=== PATIENT | female | born 1930 | race Caucasian/White ===

== ENCOUNTER 2016-10-05 14:34 | Inpatient (IN) ==
[2016-10-05] MEDS ORDERED: LASIX IVP STA ×2 (14:45→18:59)
[2016-10-05 14:49] LABS: ABG PCO2 27.6 mmHg (35-45); ABG PH 7.465 (7.35-7.45)
[2016-10-05 14:50] LABS: ABG BASE EXCESS -4 (-2.0-2.0); ABG HCO3 19.9 (22.0-26.0); ABG TCO2 21 (22.0-28.0)
[2016-10-05 15:18] LABS: BASOPHILS % (AUTO) 0.1 % (0.0-3.0); EOSINOPHILS # (AUTO) 0.1 K/ul (0.0-0.7); EOSINOPHILS % (AUTO) 0.4 % (0.0-7.0); HEMATOCRIT 31.2 % (37.0-47.0); HEMOGLOBIN 10.3 g/dl (12.0-16.0); IMMATURE GRANULOCYTE % (AUTO) 0.5 % (0.0-5.0); LYMPHOCYTES # (AUTO) 0.9 K/uL (0.60-3.4); LYMPHOCYTES % (AUTO) 6.4 (10.0-50.0); MEAN CORPUSCULAR HEMOGLOBIN 30.6 pg (27.0-31.0); MEAN CORPUSCULAR VOLUME 92.6 fl (81.0-99.0); MONOCYTES # (AUTO) 0.7 K/uL (0.4-2.0); MONOCYTES % (AUTO) 5.5 (0-10); NEUTROPHILS # (AUTO) 11.6 K/ul (2.0-6.9); NEUTROPHILS % (AUTO) 87.1; PLATELET COUNT 255 10^3/uL (140-440); RED BLOOD COUNT 3.37 10^6/ul (4.20-5.40); WHITE BLOOD COUNT 13.34 K/ul (4.6-10.2)
--- NOTE | 2016-10-05 15:21 | CT ---
EXAM: Noncontrast CT of the chest HISTORY: Dyspnea COMPARISON: 11/26/2015 chest x-ray TECHNIQUE: Noncontrast CT of the chest FINDINGS: There is a [id number] right and small left pleural effusion. Interlobular septal thickening i s seen with asymmetric prominence in the right lung. There are right greater than left ground-glass opacities. There is right upper lobe linear atelectasis. Inferior right middle lobe and medial rig ht lower lobe atelectasis is also seen. A 9 mm right upper lobe subpleural focal density is seen on axial image 19. There is mild lingular and left lower lobe atelectasis. The heart is enlarged. There are operative changes of CABG. Atherosclerotic calcifications are pre sent including the coronary arteries. A 1.3 cm subcarinal lymph node is seen. A 1.1 cm pretracheal lymph node is identified. Other smaller mediastinal lymph nodes are present. A 2.1 cm left renal probable cyst is seen. IMPRESSION: Szlksclx-hr-[id number] right and small left pleural effusions. Right greater than left ground-glass opacities which could represent asymmetric pulmonary edema or a n infectious etiology. Asymmetric right greater than left interlobular septal thickening. This is a nonspecific finding of ten seen with interstitial edema. Follow-up to resolution is recommended to exclude a neoplastic et iology. Scattered areas of right lung atelectasis. Right upper lobe nodule versus focus of atelectasis/scarring with the measuring 9 mm. 3-month follo w up recommended. Nonspecific mildly enlarged mediastinal lymph nodes.
[2016-10-05 15:38] LABS: ALBUMIN 3.8 g/dL (3.4-5.0); ALBUMIN/GLOBULIN RATIO 1.03; ANION GAP 14.4; BILIRUBIN,TOTAL 0.78 mg/dL (0.00-1.20); BUN/CREATININE RATIO 14.17; CALCIUM 9.5 mg/dL (8.2-10.2); CREATININE 1.27 mg/dL (0.60-1.30); POTASSIUM 4.4 mmol/L (3.5-5.10); TOTAL PROTEIN 7.5 g/dL (5.8-8.1); TROPONIN I 0.051 ng/ml (0.0000-0.4000)
--- NOTE | 2016-10-05 15:46 | ED.PDOC ---
General ED Provider: Dr. MARICARMEN BYRD-ER Chief Complaint: Shortness of Air Stated Complaint: im sob--my legs are swollen --i quit taking my lasix 4 days ago cause i pee all the time Time Seen by Physician: 14:40 Mode of Arrival: Wheelchair Information Source: Patient Exam Limitations: No limitations Primary Care Provider: CORWIN CRABTREE Nursing and Triage Documentation Reviewed and Agree: Yes Respiratory Complaint Exam - Shortness of Air Complaint/Exam Onset/Duration: 2 days ago Symptoms Are: Still present Timing: Intermittent Initial Severity: Mild Current Severity: Moderate Character: Reports: Dyspnea at rest, Dyspnea on exertion, Orthopnea Aggravating: Reports: None Alleviating: Reports: Oxygen Associated Signs and Symptoms: Reports: Edema, Labored breathing. Denies: Cough , Wheezing, Chest pain with cough, Chest pain, Fever, Chills, Diaphoresis, Nasal congestion, Dizziness, Calf pain, Calf swelling, Rapid breathing, Decreased intake Related History: Reports: Similar episode Cardiac Risk Factors: Reports: CAD, Diabetes, Hypertension Tuberculosis Risk Factors: Reports: Chronic Resp. Faliure Home Oxygen Use: No Recent Stress Test: No Recent Echo/LV Function: No Respiratory Distress: None Stridor Present: No Tracheal Deviation: No Subcutaneous Emphysema: No Accessory Muscle Use: No Retractions: Not Present Diminished Breath Sounds: No Prolonged Expiratory Phase: No Unable to Speak Full Sentences: No Fatigue: Yes Leg Swelling: Yes Neela's Sign Present: No Grunting Respirations: No Kussmaul Respirations: No Differential Diagnoses: CHF, Pulmonary Edema, Pneumonia Quality Indicator For Non-Traumatic Chest Pain/Syncope: EKG Performed Review of Systems - Review Of Systems Constitutional: Reports: No symptoms Eyes: Reports: No symptoms Ears, Nose, Mouth, Throat: Reports: No symptoms Respiratory: Reports: Cough, Short of air Cardiac: Reports: Edema GI: Reports: No symptoms : Reports: No symptoms Musculoskeletal: Reports: No symptoms Skin: Reports: No symptoms Neurological: Reports: No symptoms Endocrine: Reports: No symptoms Hematologic/Lymphatic: Reports: No symptoms All Other Systems: Reviewed and Negative Past Medical History - Past Medical History Endocrine: Reports: DM 2 Cardiovascular: Reports: CAD, Hypertension, CHF Respiratory: Reports: Unknown Hematological: Reports: Unknown Gastrointestinal: Reports: Unknown Genitourinary: Reports: Unknown Neuro/Psych: Reports: Unknown Musculoskeletal: Reports: Unknown Cancer: Reports: Unknown Last Menstrual Period: none - Surgical History General Surgical History: Reports: Unknown - Family History Family History: Reports: Unknown - Social History Smoking Status: Never smoker Hx Substance Use: No Alcohol Screening: None Lives: With family Physical Exam - Physical Exam Appearance: Well-appearing Eyes: NIKO ENT: Ears normal, Nose normal, Oropharynx normal Neck: Supple Respiratory: Crackles, Rhonchi Cardiovascular: RRR, Pulses normal, No rub, No murmur GI/: Soft, Nontender, No masses, Bowel sounds normal, No Organomegaly Musculoskeletal: Normal strength, ROM intact, No edema, No calf tenderness Skin: Warm, Dry, Normal color Neurological: Sensation intact Psychiatric: Affect appropriate, Mood appropriate Interpretation - Radiology Interpretation Radiology Interpretation By: Radiologist Radiology Results: Positive Exam Interpreted: CT Scan - EKG Interpretation Time of EKG #1: 15:48 Rate: Normal Rhythm: Sinus Ectopy: None Mckenney: NL ST Segment: Normal Interpretation: nsr Re-Evaluation - Re-Evaluation Time of Re-Evaluation: 15:49 Status: Improved (voided 300cc ) Vital Signs Stable: Yes Pain Level: 0 Appearance: NAD Lungs: Clear Skin: Warm and Dry Neuro: Alert and Oriented X3 CV: RRR Physician Notification - Case Discussed Physician Notified: dr crabtree Time of Notification: 15:57 Critical Care Note - Critical Care Note Total Time (mins): 0 Course - Course Hematology/Chemistry: 10/05/16 15:05 10/05/16 15:05 Orders, Labs, Meds: Lab Review 10/05/16 10/05/16 14:40 15:05 WBC 13.34 H RBC 3.37 L Hgb 10.3 L Hct 31.2 L MCV 92.6 MCH 30.6 MCHC 33.0 RDW Coeff of Nik 16.7 H Plt Count 255 Immature Gran % (Auto) 0.5 Neut % (Auto) 87.1 Lymph % (Auto) 6.4 L Hardee % (Auto) 5.5 Eos % (Auto) 0.4 Baso % (Auto) 0.1 Immature Gran # (Auto) 0.1 Neut # 11.6 H Lymph # 0.9 Hardee # 0.7 Eos # 0.1 Baso # 0.0 D-Dimer (Manual) 2823.49 Puncture Site Rb O2 Saturation 87.0 L ABG pH 7.465 H ABG pCO2 27.6 L ABG pO2 49.0 L* ABG HCO3 19.9 L ABG Total CO2 21 L ABG Base Excess -4 L Harley Test + FiO2 % 21.0 Sodium 139 Potassium 4.4 Chloride 107 Carbon Dioxide 22 L Anion Gap 14.4 BUN 18 Creatinine 1.27 Estimated GFR (MDRD) 40.00 BUN/Creatinine Ratio 14.17 Glucose 110 Calcium 9.5 Total Bilirubin 0.78 AST 34 ALT 67 Alkaline Phosphatase 57 Total Creatine Kinase 53 Troponin I 0.0510 B-Natriuretic Peptide 2315 H Total Protein 7.5 Albumin 3.8 Globulin 3.7 Albumin/Globulin Ratio 1.03 Orders Category Date Time Status ABG DRAW REQUEST Stat CARDIO 10/05/16 14:40 Completed EKG-(ED ONLY) Stat CARDIO 10/05/16 14:40 Completed Hospital Orderly [ED ROOF TRUSS DETAILER APPLIED] .ONCE EMERGENCY 10/05/16 14:40 Active IV [ED IV/MEDIPORT/POWERPORT] .ONCE EMERGENCY 10/05/16 14:41 Active ABG Stat LAB 10/05/16 14:40 Completed B-TYPE NATRIURETIC PEPTIDE Stat LAB 10/05/16 15:05 Completed CBC W/ AUTO DIFF Stat LAB 10/05/16 15:05 Completed COMPREHENSIVE METABOLIC PANEL Stat LAB 10/05/16 15:05 Completed CREATINE KINASE Stat LAB 10/05/16 15:05 Completed D-DIMER Stat LAB 10/05/16 15:05 Completed TROPONIN I Stat LAB 10/05/16 15:05 Completed 0.9 % Sodium Chloride [Saline Flush] MEDS 10/05/16 14:41 Active 1 syr IVF PRN PRN Furosemide [Lasix] MEDS 10/05/16 14:45 Discontinued 40 mg IVP ONCE STA CT CHEST W/O CONTRAST Stat RADS 10/05/16 14:41 Completed Medications Generic Name Dose Route Start Last Admin Trade Name Freq PRN Reason Stop Dose Admin Sodium Chloride 1 syr 10/05/16 14:41 10/05/16 15:12 Saline Flush IVF 1 syr PRN PRN Administration To flush IV Discontinued Medications Generic Name Dose Route Start Last Admin Trade Name Freq PRN Reason Stop Dose Admin Furosemide 40 mg 10/05/16 14:45 10/05/16 15:11 Lasix IVP 10/05/16 14:46 40 mg ONCE STA Administration Vital Signs: Temp Pulse Resp BP Pulse Ox 10/05/16 14:35 97.4 F L 106 H 28 H 166/83 H 86 L Departure - Departure Time of Disposition: 15:57 Disposition: ADMITTED INPATIENT Discharge Problem: Acute respiratory failure Qualifiers: Respiratory failure complication: hypoxia Qualifier Code: (J96.01) Acute respiratory failure with hypoxia Congestive heart failure Qualifiers: Congestive heart failure type: unspecified congestive heart failure type Congestive heart failure chronicity: acute Qualifier Code: (I50.9) Heart failure , unspecified Instructions: Pulmonary Edema (ED), Heart Failure (ED) Condition: Stable Pt referred to PMD for follow-up: Yes Allergies/Adverse Reactions: Allergies ezetimibe [From Zetia] Adverse Reaction (Verified 10/05/16 14:41) guaifenesin [From Mucinex] Adverse Reaction (Verified 10/05/16 14:41) niacin [From Niaspan Extended-Release] Adverse Reaction (Verified 10/05/16 14:41 ) Home Medications: Ambulatory Orders Clopidogrel Bisulfate [Plavix] 75 mg PO DAILY 11/26/15 Furosemide [Lasix] 40 mg PO PRN PRN 11/26/15 Rosuvastatin Calcium [Crestor] 20 mg PO BEDTIME 11/26/15 Acetaminophen [Tylenol Extra Strength] 500 mg PO Q4-6H PRN 10/05/16 Aspirin [Aspirin EC] 81 mg PO DAILYWM 10/05/16 Lisinopril 10 mg PO DAILY 10/05/16 Metoprolol Succinate 100 mg PO DAILY 10/05/16 Disposition Discussed With: Patient, Family
--- NOTE | 2016-10-05 16:54 | US ---
EXAM: Bilateral lower extremity venous Doppler HISTORY: Concern for DVT with difficulty breathing and lower extremity tenderness and swelling. COMPARISON: None TECHNIQUE: Sonographic and Doppler evaluation of the bilateral lower extremity vessels from the com mon femoral through the anterior tibial veins were obtained. Augmentation and compression technique s were also performed. FINDINGS: There is spontaneous Doppler flow seen in the bilateral lower extremity veins from the co mmon femoral through the anterior tibial veins. There is normal compression and augmentation throug hout the lower extremity veins. There is no visualized reflux. Sonographic appearance of the soft tissues are unremarkable. IMPRESSION: No lower extremity DVT.
[2016-10-05 17:35] VITALS: BMI 28.3
[2016-10-05] MEDS ORDERED: TORADOL IVP STA (18:57)
[2016-10-05] MEDS ORDERED: DECADRON 4 MG/ML SDV IM STA (18:57)
[2016-10-05] MEDS ORDERED: NON-FORMULARY MEDICATION (Rosuvastatin Calcium [Crestor] 20 MG) PO SCH ×22 (21:00)
[2016-10-05] MEDS: LOVENOX SUBCUT SCH (21:28)
[2016-10-05] MEDS: CRESTOR PO SCH (21:28)
[2016-10-05] MEDS: XOPENEX 1.25 MG NEB SCH (22:55)
[2016-10-05] MEDS ORDERED: XOPENEX 1.25 MG NEB ONE (22:55)
[2016-10-06] MEDS: XOPENEX 1.25 MG NEB SCH ×4 (05:02→23:36)
[2016-10-06] MEDS: LASIX IVP SCH (05:43)
[2016-10-06 06:08] LABS: ABG PCO2 33.3 mmHg (35-45); ABG PH 7.472 (7.35-7.45)
[2016-10-06 06:10] LABS: ABG BASE EXCESS 1 (-2.0-2.0); ABG HCO3 24.4 (22.0-26.0); ABG TCO2 25 (22.0-28.0)
[2016-10-06 06:11] LABS: BASOPHILS % (AUTO) 0.1 % (0.0-3.0); HEMATOCRIT 30.9 % (37.0-47.0); HEMOGLOBIN 10.1 g/dl (12.0-16.0); IMMATURE GRANULOCYTE % (AUTO) 0.6 % (0.0-5.0); LYMPHOCYTES # (AUTO) 0.6 K/uL (0.60-3.4); LYMPHOCYTES % (AUTO) 6.8 (10.0-50.0); MEAN CORPUSCULAR HEMOGLOBIN 30.2 pg (27.0-31.0); MEAN CORPUSCULAR HGB CONC 32.7 (31.8-35.4); MEAN CORPUSCULAR VOLUME 92.5 fl (81.0-99.0); MONOCYTES # (AUTO) 0.1 K/uL (0.4-2.0); NEUTROPHILS # (AUTO) 7.9 K/ul (2.0-6.9); NEUTROPHILS % (AUTO) 91.5; PLATELET COUNT 255 10^3/uL (140-440); RED BLOOD COUNT 3.34 10^6/ul (4.20-5.40); WHITE BLOOD COUNT 8.58 K/ul (4.6-10.2)
[2016-10-06 06:35] LABS: ALBUMIN 3.6 g/dL (3.4-5.0); ALBUMIN/GLOBULIN RATIO 1.03; ANION GAP 15.9; BILIRUBIN,TOTAL 0.76 mg/dL (0.00-1.20); BUN/CREATININE RATIO 13.01; CALCIUM 9.2 mg/dL (8.2-10.2); CREATININE 1.46 mg/dL (0.60-1.30); POTASSIUM 3.9 mmol/L (3.5-5.10); TOTAL PROTEIN 7.1 g/dL (5.8-8.1)
[2016-10-06] MEDS ORDERED: NON-FORMULARY MEDICATION (Lisinopril [Lisinopril] 10 MG) PO SCH ×22 (09:00)
[2016-10-06] MEDS ORDERED: NON-FORMULARY MEDICATION (Metoprolol Succinate [Metoprolol Succinate] 100 MG) PO SCH (09:00)
[2016-10-06] MEDS: ASPIRIN EC PO SCH (09:41)
[2016-10-06] MEDS: PLAVIX PO SCH (09:42)
[2016-10-06] MEDS: ZESTRIL PO SCH (09:42)
[2016-10-06] MEDS: TOPROL XL PO SCH (09:42)
[2016-10-06] MEDS: LOVENOX SUBCUT SCH ×2 (09:43→20:30)
--- NOTE | 2016-10-06 10:05 | PCM.PROG ---
Attending Provider: ATTENDING PROVIDER: Dr. CORWIN BESS DATE OF SERVICE: 10/06/16 SUBJECTIVE: This 86 year old WHITE/ F was hospitalized 10/05/16. The patient is hospitalized with acute respiratory failure and acute pulmonary edema. The patient's condition has improved remarkably. She is feeling much better, slept well. She had stopped taking Lasix for 3 to 4 days prior to hospitalization. She has had recent CABG, 08/08/16 at [facility]. REVIEW OF SYSTEMS: CONSTITUTIONAL: Weakness. No night sweats.. No fever or chills. HEENT: Eyes: No visual changes. No eye pain. No eye discharge. ENT: No runny nose. No epistaxis. No sinus pain. No odynophagia. No congestion. RESPIRATORY: No cough, no congestion. No hemoptysis. CARDIOVASCULAR: No angina symptoms. No CHF symptoms. No atypical chest pain for CAD. No palpitations. No shortness of breath. GASTROINTESTINAL: Appetite is not good. No abdominal pain. No nausea or vomiting. No diarrhea or constipation. No hematemesis. No hematochezia. GENITOURINARY: No urgency. No frequency. No dysuria. No hematuria. No obstructive symptoms. No discharge. No pain. No significant abnormal bleeding. MUSCULOSKELETAL: No musculoskeletal pain; no joint swelling. NEUROLOGICAL: Awake, alert, oriented to time, place and person. No headache. No neck pain. No syncope. No seizures. No dizziness. PSYCHIATRIC: Not anxious. No depression. No suicidal thoughts. No homicidal thoughts. SKIN: No rash. No lesions. No wounds. ENDOCRINE: No unexplained weight loss. No weight gain. HEMATOLOGIC/LYMPHATIC: No anemia. No purpura. No petechiae. No prolonged or excessive bleeding. No palpable lymph nodes. PHYSICAL EXAMINATION: GENERAL: The patient is awake, alert and oriented, lying/sitting in bed in no distress. VITAL SIGNS: Temperature 97.0 F, Pulse 90, Respiratory Rate 24, BP 111/67, Pulse Ox 98% HEENT: Head normocephalic, atraumatic. Eyes: Extraocular muscles are intact. Pupils are equal, round and reactive to light and accommodation. Ears: No lesions. Nose appeared normal. Throat: No exudate or erythema. NECK: Supple. No JVD, no carotid bruit. No lymphadenopathy or thyromegaly. LUNGS: Good air entry. Clear to auscultation. Percussion note normal. Chest symmetrical. HEART: S1, S2, no S3. No murmurs. No cyanosis or clubbing. No ascites. Pulses: Dorsalis pedis and posterior tibial pulses +1 to +2 both sides. ABDOMEN: Soft. Non-tender. Bowel sounds active. No CVA tenderness. No mass felt. EXTREMITIES: No edema. Full range of motion of all extremities, equal. NEUROLOGIC: No focal deficit. Cranial nerves II through XII are grossly intact. No headache, no double vision or headache. SKIN: Not dry. Intact. Turgor-normal. LYMPHATIC: No palpable lymph nodes/no lymphedema. MUSCULOSKELETAL: Normal joints with no swelling. Muscle tone is normal. LAB REVIEW: 10/06/16 05:05 10/06/16 05:05 10/06/16 06:06: Puncture Site R radial, O2 Saturation 92.0 L, ABG pH 7.472 H, ABG pCO2 33.3 L, ABG pO2 58.0 L*, ABG HCO3 24.4, ABG Total CO2 25, ABG Base Excess 1, Harley Test +, FiO2 % 21.0 10/06/16 05:05: WBC 8.58, RBC 3.34 L, Hgb 10.1 L, Hct 30.9 L, MCV 92.5, MCH 30.2 , MCHC 32.7, RDW Coeff of Nik 17.0 H, Plt Count 255, Immature Gran % (Auto) 0.6 , Neut % (Auto) 91.5, Lymph % (Auto) 6.8 L, Mccone % (Auto) 1.0, Eos % (Auto) 0.0 , Baso % (Auto) 0.1, Immature Gran # (Auto) 0.1, Neut # 7.9 H, Lymph # 0.6, Mccone # 0.1 L, Eos # 0.0, Baso # 0.0, Sodium 139, Potassium 3.9, Chloride 104, Carbon Dioxide 23, Anion Gap 15.9, BUN 19 H, Creatinine 1.46 H, Estimated GFR ( MDRD) 34.00, BUN/Creatinine Ratio 13.01, Glucose 147 H, Calcium 9.2, Total Bilirubin 0.76, AST 25, ALT 54, Alkaline Phosphatase 55, Total Protein 7.1, Albumin 3.6, Globulin 3.5, Albumin/Globulin Ratio 1.03 ASSESSMENT: 1. Acute pulmonary edema and acute respiratory failure resolved. 2. CABG 3. Chronic kidney disease 4. Anemia 5. Chronic lung disease PLAN: 1. BNP in a.m. 2. Regular diet 3. Repeat chest x-ray 4. PFT tomorrow 5. Continue Lasix 6. Continue medications 7. Echocardiogram 8. Monitor CBC and CMP 9. Will request records from [facility] for CABG Plan and coordination of the patient's care discussed in the presence of [employer] Care Manager and nurse. EDUCATION: CHF education carried out. The patient is very intelligent and wants DNR. She wants a copy of the DNR to carry with her. CONDITION: Stable SCRIBED BY: MARY RODNEY, Hospital Plan Administrator scribed while in presence of service performed by Dr. CORWIN BESS on 10/06/16 ([id number])
[2016-10-06 10:14] LABS: ABG PH 7.465 (7.35-7.45)
[2016-10-06 10:15] LABS: ABG BASE EXCESS -2 (-2.0-2.0); ABG PCO2 30.6 mmHg (35-45); ABG TCO2 23 (22.0-28.0)
--- NOTE | 2016-10-06 10:48 | HP ---
DATE OF SERVICE: 10/05/16 REASON FOR HOSPITALIZATION: Acute pulmonary edema, acute CHF HISTORY OF PRESENT ILLNESS: 84-year-old white female was brought to the emergency room because of acute shortness of breath. The patient, according to her own words, stopped taking Lasix 3 to 4 days prior to hospitalization because she had to go to the bathroom quite often. She was also being given iron infusions lately. She had to go back and forth. The patient lives by herself with the help of a friend she came to the emergency room (not the family). The patient's history is positive for orthopnea, PND, unable to sleep at night for the last couple of nights but the shortness of breath became acute this afternoon and she came to the emergency room. No chest pain. REVIEW OF SYSTEMS: CONSTITUTIONAL: Unable to sleep the past two nights. Weakness and fatigue. No night sweats. No fever or chills. HEENT: Eyes: No visual changes. No eye pain. No eye discharge. ENT: No runny nose. No epistaxis. No sinus pain. No sore throat. No odynophagia. No ear pain. No congestion. RESPIRATORY: Mild cough and congestion. No hemoptysis. CARDIOVASCULAR: No angina symptoms. No CHF symptoms. No atypical chest pain for CAD. No palpitations. Shortness of breath. PND and orthopnea. GASTROINTESTINAL: Appetite not good for the past 2 to 3 days. No abdominal pain. No nausea or vomiting. No diarrhea or constipation. No hematemesis. No hematochezia. GENITOURINARY: No urgency. No frequency. No dysuria. No hematuria. No obstructive symptoms. No discharge. No pain. No significant abnormal bleeding. MUSCULOSKELETAL: No musculoskeletal pain. No joint swelling. No arthritis. NEUROLOGICAL: No headache. No neck pain. No syncope. No seizures. No dizziness. PSYCHIATRIC: Not anxious. No depression. No suicidal thoughts. No homicidal thoughts. SKIN: No rash. No lesions. No wounds. ENDOCRINE: No unexplained weight loss. No weight gain. HEMATOLOGIC/LYMPHATIC: No anemia. No purpura. No petechiae. No prolonged or excessive bleeding. No palpable lymph nodes. PERSONAL/FAMILY/SOCIAL HISTORY: The patient is , nonsmoker. No alcohol abuse. PAST MEDICAL/SURGICAL PROBLEMS: 1. Coronary artery bypass surgery 2007 2. Right sciatica 3. Paroxysmal atrial flutter/fib 4. Hypertension 5. Dyslipidemia 6. COPD 7. Chronic kidney disease 8. Transvaginal mesh 9. Left renal complex cyst 10. Dementia 11. Insomnia 12. Hypothyroidism 13. History of ARDS 14. History of nephrolithiasis 15. Note - The patient had bypass surgery 2008 was done at [facility] 16. History of right and left cataract removal MEDICATIONS: 1. Plavix 75 mg p.o. daily 2. Metoprolol 50 mg twice a day 3. Rosuvastatin 20 mg once a day 4. Tramadol 50 mg t.i.d. p.r.n. 5. Clonazepam 0.5 once a day 6. K-Tab 10 mEq p.o. daily 7. Lasix 40 mg p.o. daily 8. Nitroglycerin p.r.n. sublingual for chest pain 9. Aspirin one tablet p.o. daily ALLERGIES: EZETIMIBE, GUAIFENESIN, NIACIN PHYSICAL EXAMINATION: GENERAL: The patient is oriented to time, place and person. The patient looks somewhat pale. The patient is not in much distress. VITAL SIGNS: Temperature 98, pulse 100/min, respiratory rate 20, BP 138/82. HEENT: Head normocephalic, atraumatic. Eyes: Extraocular muscles are intact. Pupils are equal, round and reactive to light and accommodation. Ears: No lesions. Nose appeared normal. Throat: No exudate or erythema. Sclerae nonicteric. NECK: Supple. JVP 4 cm. No carotid bruit. No lymphadenopathy or thyromegaly. LUNGS: Decreased breath sounds with mild wheeze bilaterally. Percussion note normal. Chest symmetrical. HEART: PMI not palpable on auscultation. S1, S2, no S3. No murmurs. No cyanosis or clubbing. No ascites. Pulses: Dorsalis pedis and posterior tibial pulses +1 bilaterally. ABDOMEN: Soft. Nontender. Bowel sounds active. No CVA tenderness. No mass felt. EXTREMITIES: Trace edema. Full range of motion of all extremities, equal. NEUROLOGIC: No focal deficit. Cranial nerves II through XII are grossly intact. No headache, no double vision or headache. SKIN: Not dry. Intact. Turgor - normal. LYMPHATIC: No palpable lymph nodes/no lymphedema. MUSCULOSKELETAL: Normal joints with no swelling. Muscle tone is normal. LABS/X-RAYS: CT scan of the chest with noncontrast shows pulmonary edema; moderate to large right and small left pleural effusion, right greater than left ground glass opacities could represent asymmetric pulmonary edema or infectious disease process. Scattered areas of right lung atelectasis. D. dimer elevated but the patient has renal disease and also respiratory failure. Troponin negative. Telemetry shows sinus tachycardia. ABG on admission p02 49, pc02 27, pH 7.46 with 87% saturation on room air. ASSESSMENT: 1. RESPIRATORY FAILURE WITH ACUTE PULMONARY EDEMA WITH CHF 2. CORONARY ARTERY BYPASS GRAFTING 2007 3. PAROXYSMAL ATRIAL FLUTTER/FIB 4. HYPERTENSION 5. CHRONIC LUNG DISEASE 6. CHRONIC KIDNEY DISEASE 7. DYSLIPIDEMIA 8. HYPERTENSION 9. NEPHROLITHIASIS 10. COMPLEX RENAL CYST 11. DEMENTIA 12. HYPOTHYROIDISM PLAN: 1. IV Lasix to be restarted - 40 mg was given 2. 1 cc Decadron 3. Toradol 30 mg IV now 4. Oxygen supplements 5. Monitor ABG 6. Monitor telemetry 7. EKG 8. Serial cardiac markers 9. Monitor CBC, CMP EDUCATION CARRIED OUT ABOUT: CHF CONDITION: Stable PROGNOSIS: GUARDED TIME SPENT: More than 70 minutes. ADDENDUM: The patient had recent RI in July. ST elevation RI. The patient underwent cardiac catheterization where they were able to put in one stent but unable to any other stents. During the procedure, the patient went into severe bradycardia and was resuscitated. During the stay in the hospital, the patient also developed pneumonia and was noted to have severe hypoxemia so she has been on oxygen 24 hours at home. The patient had echocardiogram done which showed hypokinetic left ventricle with ejection fraction 35 to 40%. LV size was normal. LA cavity was enlarged. MTDD
--- NOTE | 2016-10-06 11:58 | DI ---
EXAM: Two views of the chest. History: Short of breath Comparison: Chest CT 10/05/2016 Findings: Sternotomy wires. Atherosclerotic vascular calcifications. Heart is enlarged. Moderate right pleural effusion and small left pleural effusion with basilar atelectasis or pneumonia and gr eater on the right. No visible pneumothorax. No acute osseous abnormalities. Impression: Moderate right pleural effusion and small left pleural effusion with basilar atelectasi s or pneumonia. Heart is enlarged. Underlying edema is a possibility.
--- NOTE | 2016-10-06 12:22 | NM ---
EXAM: Ventilation perfusion lung scan HISTORY: Shortness of breath. Elevated D-dimer. COMPARISON: None of this type. Chest CT 10/05/2016. Chest x-ray 10/06/2016. PROCEDURE: Ventilation: The patient was allowed to inhale from a reservoir of 32.1 mCi of 99 technetium DTPA a erosol. Subsequently anterior, posterior, lateral and anterior and posterior oblique images were ob tained. Perfusion: The patient was injected with 5.4 mCi of 99 technetium MAA intravenously after which ant erior, posterior, lateral and anterior and posterior oblique images were obtained. FINDINGS: Ventilation images demonstrate a nonuniform distribution of activity in the lung mcdaniel wi th reduced activity seen in the upper lobes and regions of greater activity in the posterior lung ba ses, particularly the left. The perfusion images demonstrate a more uniform distribution of activity without evidence of specifi c segmental or subsegmental perfusion defects not matched on the ventilation portion of the examinat ion. There are small regions of reduced activity bilaterally. Some of these may be associated with the patient's scattered regions of infiltrate/edema described in the CT report which are more bisi us on the right. IMPRESSION: 1. The examination demonstrates a technically low probability of pulmonary embolus based upon the ab sence of significant mismatched perfusion defects.. 2. There is marked underlying lung disease which is particularly evident on the ventilation portion of the examination. This can affect the reliability of the in the Q scan in detecting emboli, partic ularly small or atypical emboli. 3. If there is strong clinical suspicion of a pulmonary embolus, CTA evaluation is recommended. Results faxed to the ER at 12:17 p.m.
[2016-10-06] MEDS: CRESTOR PO SCH (20:30)
[2016-10-07] MEDS: XOPENEX 1.25 MG NEB SCH ×4 (05:18→23:00)
[2016-10-07] MEDS: LASIX IVP SCH (05:42)
[2016-10-07] MEDS: TOPROL XL PO SCH (08:45)
[2016-10-07] MEDS: ASPIRIN EC PO SCH (08:45)
[2016-10-07] MEDS: PLAVIX PO SCH (08:45)
[2016-10-07] MEDS: ZESTRIL PO SCH (08:45)
[2016-10-07] MEDS: LOVENOX SUBCUT SCH ×2 (08:45→20:23)
[2016-10-07] MEDS: CRESTOR PO SCH (20:24)
[2016-10-08] MEDS: XOPENEX 1.25 MG NEB SCH ×4 (05:37→23:00)
[2016-10-08 05:43] LABS: ABG BASE EXCESS 2 (-2.0-2.0); ABG PCO2 38.2 mmHg (35-45); ABG TCO2 27 (22.0-28.0)
[2016-10-08] MEDS: LASIX IVP SCH (05:52)
[2016-10-08] MEDS: ASPIRIN EC PO SCH (08:43)
[2016-10-08] MEDS: LOVENOX SUBCUT SCH ×2 (08:43→20:48)
[2016-10-08] MEDS: ZESTRIL PO SCH (08:43)
[2016-10-08] MEDS: PLAVIX PO SCH (08:44)
[2016-10-08] MEDS: TOPROL XL PO SCH (08:44)
[2016-10-08 13:08] LABS: BASOPHILS % (AUTO) 0.2 % (0.0-3.0); EOSINOPHILS # (AUTO) 0.5 K/ul (0.0-0.7); EOSINOPHILS % (AUTO) 4.5 % (0.0-7.0); HEMATOCRIT 34.1 % (37.0-47.0); IMMATURE GRANULOCYTE % (AUTO) 0.4 % (0.0-5.0); LYMPHOCYTES # (AUTO) 1.6 K/uL (0.60-3.4); LYMPHOCYTES % (AUTO) 14.2 (10.0-50.0); MEAN CORPUSCULAR HEMOGLOBIN 30.1 pg (27.0-31.0); MEAN CORPUSCULAR HGB CONC 32.3 (31.8-35.4); MEAN CORPUSCULAR VOLUME 93.4 fl (81.0-99.0); MONOCYTES # (AUTO) 1.1 K/uL (0.4-2.0); MONOCYTES % (AUTO) 9.6 (0-10); NEUTROPHILS # (AUTO) 7.8 K/ul (2.0-6.9); NEUTROPHILS % (AUTO) 71.1; PLATELET COUNT 302 10^3/uL (140-440); RED BLOOD COUNT 3.65 10^6/ul (4.20-5.40); WHITE BLOOD COUNT 10.95 K/ul (4.6-10.2)
[2016-10-08 13:26] LABS: ALBUMIN 3.8 g/dL (3.4-5.0); ALBUMIN/GLOBULIN RATIO 0.97; ANION GAP 16.2; BILIRUBIN,TOTAL 0.51 mg/dL (0.00-1.20); BUN/CREATININE RATIO 17.46; CALCIUM 9.4 mg/dL (8.2-10.2); CREATININE 1.66 mg/dL (0.60-1.30); POTASSIUM 4.2 mmol/L (3.5-5.10); TOTAL PROTEIN 7.7 g/dL (5.8-8.1)
[2016-10-08] MEDS: CRESTOR PO SCH (20:48)
[2016-10-09 04:57] LABS: BASOPHILS % (AUTO) 0.3 % (0.0-3.0); EOSINOPHILS # (AUTO) 0.6 K/ul (0.0-0.7); EOSINOPHILS % (AUTO) 5.9 % (0.0-7.0); HEMATOCRIT 28.9 % (37.0-47.0); HEMOGLOBIN 9.5 g/dl (12.0-16.0); IMMATURE GRANULOCYTE % (AUTO) 0.6 % (0.0-5.0); LYMPHOCYTES # (AUTO) 1.8 K/uL (0.60-3.4); LYMPHOCYTES % (AUTO) 17.7 (10.0-50.0); MEAN CORPUSCULAR HEMOGLOBIN 30.8 pg (27.0-31.0); MEAN CORPUSCULAR HGB CONC 32.9 (31.8-35.4); MEAN CORPUSCULAR VOLUME 93.8 fl (81.0-99.0); MONOCYTES # (AUTO) 1.2 K/uL (0.4-2.0); MONOCYTES % (AUTO) 11.6 (0-10); NEUTROPHILS # (AUTO) 6.5 K/ul (2.0-6.9); NEUTROPHILS % (AUTO) 63.9; PLATELET COUNT 245 10^3/uL (140-440); RED BLOOD COUNT 3.08 10^6/ul (4.20-5.40); WHITE BLOOD COUNT 10.23 K/ul (4.6-10.2)
[2016-10-09] MEDS: XOPENEX 1.25 MG NEB SCH ×2 (05:16→12:59)
[2016-10-09 05:25] LABS: ALBUMIN 3.1 g/dL (3.4-5.0); ALBUMIN/GLOBULIN RATIO 1.11; ANION GAP 12.2; BILIRUBIN,TOTAL 0.32 mg/dL (0.00-1.20); BUN/CREATININE RATIO 19.23; CALCIUM 8.4 mg/dL (8.2-10.2); CREATININE 1.56 mg/dL (0.60-1.30); POTASSIUM 4.2 mmol/L (3.5-5.10); TOTAL PROTEIN 5.9 g/dL (5.8-8.1)
[2016-10-09] MEDS: LASIX IVP SCH (06:47)
[2016-10-09] MEDS ORDERED: LASIX TAB PO SCH (08:30)
[2016-10-09] MEDS: LOVENOX SUBCUT SCH (08:38)
[2016-10-09] MEDS: ASPIRIN EC PO SCH (08:38)
[2016-10-09] MEDS: PLAVIX PO SCH (08:40)
[2016-10-09] MEDS: TOPROL XL PO SCH (08:40)
[2016-10-09] MEDS ORDERED: K-DUR PO SCH ×2 (09:00)
[2016-10-09] MEDS ORDERED: MICRO-K CAP PO SCH (09:00)
[2016-10-09 10:10] VITALS: BP 99/53; TEMP 97.9
--- NOTE | 2016-10-09 12:19 | US ---
EXAM: ULTRASOUND CAROTID DUPLEX, BILATERAL HISTORY: Weakness and hypotension FINDINGS: Duncan-scale ultrasound, color Doppler and spectral analysis was performed. Velocities are in meters per second. By duncan scale and color Doppler imaging, there was a large amount of heterogeneous atherosclerotic p laque identified especially on the right. Areas of plaque greater than 50% vessel diameter are like ly. RIGHT: External carotid artery peak systolic velocity: 0.8/0.0 Common carotid artery peak systolic velocity/end diastolic velocity: 0.7/0.2 Internal carotid artery peak systolic velocity: 1.0 ICA/CCA peak systolic velocity ratio: 1.4 ICA end diastolic velocity: 0.2 LEFT: External carotid artery peak systolic velocity: 8.5/0.0 Common carotid artery peak systolic velocity/end diastolic velocity: 0.8/0.2 Internal carotid artery peak systolic velocity: 1.0 ICA/CCA peak systolic velocity ratio: 1.2 ICA end diastolic velocity: 0.3 The right and left vertebral arteries were antegrade. IMPRESSION: 1. By duncan scale and color Doppler imaging, there was a large amount of heterogeneous atherosclerot ic plaque identified especially on the right. Areas of plaque greater than 50% vessel diameter are likely. 2. Both right and left internal carotid artery peak systolic velocities as well as bilateral ICA/CC A peak systolic velocity ratios had values indicating no hemodynamically significant stenosis. This does not correlate with duncan scale and color Doppler imaging findings and follow-up CTA may be bene ficial if indicated clinically. 3. Both vertebral arteries were antegrade.
--- NOTE | 2016-10-09 12:27 | CM.DICTOOL ---
ADMISSION: 10/05/16 16:56 DISCHARGE: October 09, 2016 DATE OF SERVICE: 10/09/16 FINAL DIAGNOSIS Acute Respiratory Failure Acute Pulmonary Edema Congestive Heart Failure Anemia [place] 08/08/2016 with stent application Pneumonia 08/2016 (health care acquired) [place], 2007, 2008 CABG, 2007 Hypertension Dyslipidemia COPD Chronic Kidney Disease Renal Cyst, Complex left Hypothyroid LAST VITALS Temp Pulse Resp BP Pulse Ox 97.5 F L 60 19 92/48 L 96 10/09/16 05:29 10/09/16 05:29 10/09/16 05:29 10/09/16 05:29 10/09/16 05:29 ACTIVE HOME MEDICATIONS Aspirin (Aspirin Ec) 81 mg PO DAILYWM [facility] Last Admin: 10/09/16 08:38 Dose: 81 mg Clopidogrel Bisulfate (Plavix) 75 mg PO DAILY [facility] Last Admin: 10/09/16 08:40 Dose: 75 mg Furosemide (Lasix Tab) 20 mg PO QDAC [facility] Last Admin: 10/09/16 08:38 Dose: 20 mg Lisinopril (Zestril) 10 mg PO DAILY [facility] Last Admin: 10/08/16 08:43 Dose: 10 mg Metoprolol Succinate (Toprol Xl) 100 mg PO DAILY [facility] Last Admin: 10/09/16 08:40 Dose: 100 mg Potassium Chloride (Micro-K Cap) 10 meq PO DAILY [facility] Last Admin: 10/09/16 08:40 Dose: 10 meq Rosuvastatin Calcium (Crestor) 20 mg PO BEDTIME [facility] Last Admin: 10/08/16 20:48 Dose: 20 mg ALLERGIES ezetimibe [From Zetia] Adverse Reaction (Verified 10/05/16 14:41) guaifenesin [From Mucinex] Adverse Reaction (Verified 10/05/16 14:41) niacin [From Niaspan Extended-Release] Adverse Reaction (Verified 10/05/16 14:41 ) NEW PRESCRIPTIONS: K-tab 10 meq daily Lisinopril 5 mg daily SMOKING: Not Applicable DISEASE SPECIFIC EDUCATION: Medications CHF Appointments LAB REVIEW: 10/09/16 04:20 10/09/16 04:20 10/09/16 04:20: WBC 10.23 H, RBC 3.08 L, Hgb 9.5 L, Hct 28.9 L, MCV 93.8, MCH 30.8, MCHC 32.9, RDW Coeff of Nik 17.2 H, Plt Count 245, Immature Gran % (Auto) 0.6, Neut % (Auto) 63.9, Lymph % (Auto) 17.7, [place] % (Auto) 11.6 H, Eos % (Auto ) 5.9, Baso % (Auto) 0.3, Immature Gran # (Auto) 0.1, Neut # 6.5, Lymph # 1.8, [place] # 1.2, Eos # 0.6, Baso # 0.0, Sodium 138, Potassium 4.2, Chloride 104, Carbon Dioxide 26, Anion Gap 12.2, BUN 30 H, Creatinine 1.56 H, Estimated GFR ( MDRD) 32.00, BUN/Creatinine Ratio 19.23, Glucose 89, Calcium 8.4, Total Bilirubin 0.32, AST 21, ALT 34, Alkaline Phosphatase 39 L, Total Protein 5.9, Albumin 3.1 L, Globulin 2.8, Albumin/Globulin Ratio 1.11 10/08/16 13:00: WBC 10.95 H, RBC 3.65 L, Hgb 11.0 L, Hct 34.1 L, MCV 93.4, MCH 30.1, MCHC 32.3, RDW Coeff of Nik 17.2 H, Plt Count 302, Immature Gran % (Auto) 0.4, Neut % (Auto) 71.1, Lymph % (Auto) 14.2, [place] % (Auto) 9.6, Eos % (Auto) 4.5, Baso % (Auto) 0.2, Immature Gran # (Auto) 0.0, Neut # 7.8 H, Lymph # 1.6, [place] # 1.1, Eos # 0.5, Baso # 0.0, Sodium 137, Potassium 4.2, Chloride 98, Carbon Dioxide 27, Anion Gap 16.2, BUN 29 H, Creatinine 1.66 H, Estimated GFR ( MDRD) 29.00, BUN/Creatinine Ratio 17.46, Glucose 98, Calcium 9.4, Total Bilirubin 0.51, AST 26, ALT 44, Alkaline Phosphatase 51 L, Total Protein 7.7, Albumin 3.8, Globulin 3.9, Albumin/Globulin Ratio 0.97 PLAN: Discharge home to [facility] Diet: Regular as tolerated Activity: Gradually Resume as tolerated Continue use of home oxygen at 2 liters per cannula Patient is DNR per her request. Medication changes: Reduce Lisinopril to 5 mg daily Take Lasix 40 mg daily An appointment is scheduled with Dr. Pereira on October 16 at 2 pm Please Keep your scheduled appointment with Dr. Almanza Please Keep your scheduled appointment with Dr. Mack office on October 30 Ms. Breen is alert and oriented x 3. She is independent with activities of daily living and does not require any assistive devices for ambulation. Meal intakes are good at 100%. She uses oxygen continuously at 2 liters per cannula which she has at home. The oxygen is supplied by [employer]. No skin breakdown, rashes or irritaion noted. Rafael Pereira MD
--- NOTE | 2016-10-09 13:23 | PCM.PROG ---
Attending Provider: ATTENDING PROVIDER: Dr. CORWIN BESS DATE OF SERVICE: 10/09/16 SUBJECTIVE: This 86 year old WHITE/ F was hospitalized 10/05/16. The patient is hospitalized with CHF and respiratory failure. The patient's condition has improved a lot. REVIEW OF SYSTEMS: CONSTITUTIONAL: The patient is feeling a lot better. No night sweats. No fatigue , malaise, lethargy. No fever or chills. HEENT: Eyes: No visual changes. No eye pain. No eye discharge. ENT: No runny nose. No epistaxis. No sinus pain. No odynophagia. No congestion. RESPIRATORY: No cough, no congestion. No hemoptysis. CARDIOVASCULAR: No angina symptoms. No CHF symptoms. No atypical chest pain for CAD. No palpitations. No shortness of breath. No PND, no orthopnea. GASTROINTESTINAL: No abdominal pain. No nausea or vomiting. No diarrhea or constipation. No hematemesis. No hematochezia. GENITOURINARY: No urgency. No frequency. No dysuria. No hematuria. No obstructive symptoms. No discharge. No pain. No significant abnormal bleeding. MUSCULOSKELETAL: No musculoskeletal pain; no joint swelling. NEUROLOGICAL: Awake, alert, oriented to time, place and person. No headache. No neck pain. No syncope. No seizures. No dizziness. PSYCHIATRIC: Not anxious. No depression. No suicidal thoughts. No homicidal thoughts. SKIN: No rash. No lesions. No wounds. ENDOCRINE: No unexplained weight loss. No weight gain. HEMATOLOGIC/LYMPHATIC: No anemia. No purpura. No petechiae. No prolonged or excessive bleeding. No palpable lymph nodes. PHYSICAL EXAMINATION: GENERAL: The patient is awake, alert and oriented, sitting on the side of the bed in no distress. VITAL SIGNS: Temperature 97.5 F, Pulse 60, Respiratory Rate 19, BP 92/48, Pulse Ox 96% HEENT: Head normocephalic, atraumatic. Eyes: Extraocular muscles are intact. Pupils are equal, round and reactive to light and accommodation. Ears: No lesions. Nose appeared normal. Throat: No exudate or erythema. NECK: Supple. No JVD, no carotid bruit. No lymphadenopathy or thyromegaly. LUNGS: Decreased breath sounds. Clear to auscultation. Percussion note normal. Chest symmetrical. HEART: S1, S2, no S3. No murmurs. No cyanosis or clubbing. No ascites. Pulses: Dorsalis pedis and posterior tibial pulses +1 to +2 both sides. ABDOMEN: Soft. Non-tender. Bowel sounds active. No CVA tenderness. No mass felt. EXTREMITIES: No edema. Full range of motion of all extremities, equal. NEUROLOGIC: No focal deficit. Cranial nerves II through XII are grossly intact. No headache, no double vision or headache. SKIN: Not dry. Intact. Turgor-normal. LYMPHATIC: No palpable lymph nodes/no lymphedema. MUSCULOSKELETAL: Normal joints with no swelling. Muscle tone is normal. LAB REVIEW: 10/09/16 04:20 10/09/16 04:20 10/09/16 04:20: WBC 10.23 H, RBC 3.08 L, Hgb 9.5 L, Hct 28.9 L, MCV 93.8, MCH 30.8, MCHC 32.9, RDW Coeff of Nik 17.2 H, Plt Count 245, Immature Gran % (Auto) 0.6, Neut % (Auto) 63.9, Lymph % (Auto) 17.7, [place] % (Auto) 11.6 H, Eos % (Auto ) 5.9, Baso % (Auto) 0.3, Immature Gran # (Auto) 0.1, Neut # 6.5, Lymph # 1.8, [place] # 1.2, Eos # 0.6, Baso # 0.0, Sodium 138, Potassium 4.2, Chloride 104, Carbon Dioxide 26, Anion Gap 12.2, BUN 30 H, Creatinine 1.56 H, Estimated GFR ( MDRD) 32.00, BUN/Creatinine Ratio 19.23, Glucose 89, Calcium 8.4, Total Bilirubin 0.32, AST 21, ALT 34, Alkaline Phosphatase 39 L, Total Protein 5.9, Albumin 3.1 L, Globulin 2.8, Albumin/Globulin Ratio 1.11 10/08/16 13:00: WBC 10.95 H, RBC 3.65 L, Hgb 11.0 L, Hct 34.1 L, MCV 93.4, MCH 30.1, MCHC 32.3, RDW Coeff of Nik 17.2 H, Plt Count 302, Immature Gran % (Auto) 0.4, Neut % (Auto) 71.1, Lymph % (Auto) 14.2, [place] % (Auto) 9.6, Eos % (Auto) 4.5, Baso % (Auto) 0.2, Immature Gran # (Auto) 0.0, Neut # 7.8 H, Lymph # 1.6, [place] # 1.1, Eos # 0.5, Baso # 0.0, Sodium 137, Potassium 4.2, Chloride 98, Carbon Dioxide 27, Anion Gap 16.2, BUN 29 H, Creatinine 1.66 H, Estimated GFR ( MDRD) 29.00, BUN/Creatinine Ratio 17.46, Glucose 98, Calcium 9.4, Total Bilirubin 0.51, AST 26, ALT 44, Alkaline Phosphatase 51 L, Total Protein 7.7, Albumin 3.8, Globulin 3.9, Albumin/Globulin Ratio 0.97 ASSESSMENT: 1. ACUTE RESPIRATORY FAILURE, RESOLVED 2. CHF, RESOLVED 3. COPD 4. CAD 5. CHRONIC KIDNEY DISEASE 6. ANEMIA PLAN: 1. Continue followup with Dr. Tsang for anemia 2. Continue followup with Dr. Almanza 3. I will see the patient in followup in 7 days 4. Will do carotid scan if not done previously 5. Lasix 20 mg p.o. today 6. K-Tab 10 mEq p.o. daily 7. Hold Lisinopril for today 8. Discharge home later today Plan and coordination of the patient's care discussed in the presence of [employer] and nurse. EDUCATION: Discussed with the patient further plan of care including medications in relation to her blood pressure. Also discussed her followup appointments with the above-mentioned physicians. CONDITION: Stable SCRIBED BY: MARY RODNEY Sustainability Manager scribed while in presence of service performed by Dr. CORWIN BESS on 10/09/16 (0801)
--- NOTE | 2016-10-09 13:44 | ECHO2D ---
Date of Exam: 10/06/16 Ordering Physician: CORWIN BESS Reason for Echo: SOB, CHF, HTN, RESPIRATORY FAILURE, HISTORY NM Auscultation: S1, S2 Murmurs: SYSTOLIC M-Mode Normal Adult Results LV Dimensions Normal Adult Results AoV Opening excursions >1.6 1.4 LVEDD-base- 3.5-5.8 5.0 Ao root dimensions 2.0-3.7 2.8 LVESD-base- 3.1-4.6 L. Atrium dimensions 1.9-3.8 4.7 Post. Wall thickness 0.8-1.1 1.1 IV septum (thickness) 0.7-1.2 1.2 Post. Wall excursion 0.72-1.3 0.6 Septal motion 0.5 Systolic motion R. Ventricular cavity 1.5-2.0 NORMAL LVEF 60% 40% Paradoxical septal wall motion NORMAL 2-D : HYPOKINETIC LEFT VENTRICLE, NORMAL LEFT VENTRICULAR SIZE, ENLARGED LEFT ATRIAL CAVITY, CALCIFIC AORTIC VALVES--MILD AORTIC STENOSIS, NO EFFUSION NO THROMBUS DOPPLER WITH COLOR FLOW: MODERATE MITRAL REGURGITATION/TRICUSPID REGURGITATION M-MODE: MV: NORMAL AV: CALCIFIC AORTIC VALVES--MAYBE MILD AORTIC STENOSIS TV: NORMAL PV: NORMAL CHAMBER SIZE: ENLARGED LEFT ATRIAL CAVITY WALL MOTION: HYPOKINETIC LEFT VENTRICLE PERICARDIUM: NORMAL INTERPRETATION: 1. LEFT VENTRICLE HYPERTROPHY 2. ENLARGED LEFT ATRIAL CAVITY 3. CALCIFIC AORTIC VALVES WITH MAYBE MILD AORTIC STENOSIS 4. HYPOKINETIC LEFT VENTRICLE WITH LEFT VENTRICULAR EJECTION FRACTION 40% 5. MODERATE TRICUSPID REGURGITATION AND MITRAL REGURGITATION MTDD
--- NOTE | 2016-10-09 15:20 | PN ---
DATE OF SERVICE: 10/07/16 SUBJECTIVE: The patient is a 86 year old white female hospitalized with acute respiratory failure, acute pulmonary edema, congestive heart failure. The patient has stopped taking several medication especially Lasix. The patient's condition has improved. Feeling a lot better. REVIEW OF SYSTEMS: CONSTITUTIONAL: No night sweats. No fatigue, malaise, lethargy. No fever or chills. HEENT: Eyes: No visual changes. No eye pain. No eye discharge. ENT: No runny nose. No epistaxis. No sinus pain. No sore throat. No odynophagia. No congestion. RESPIRATORY: No cough, no congestion. No hemoptysis. CARDIOVASCULAR: No angina symptoms. No CHF symptoms. No atypical chest pain for CAD. No palpitations. No shortness of breath. GASTROINTESTINAL: No abdominal pain. No nausea or vomiting. No diarrhea or constipation. No hematemesis. No hematochezia. GENITOURINARY: No urgency. No frequency. No dysuria. No hematuria. No obstructive symptoms. No discharge. No pain. No significant abnormal bleeding. MUSCULOSKELETAL: No musculoskeletal pain; no joint swelling. NEUROLOGICAL: No headache. No neck pain. No syncope. No seizures. No dizziness. PSYCHIATRIC: Not anxious. No depression. No suicidal thoughts. No homicidal thoughts. SKIN: No rash. No lesions. No wounds. ENDOCRINE: No unexplained weight loss. No weight gain. HEMATOLOGIC/LYMPHATIC: No anemia. No purpura. No petechiae. No prolonged or excessive bleeding. No palpable lymph nodes. PHYSICAL EXAMINATION: GENERAL: The patient is oriented to time, place and person. VITAL SIGNS: Temperature 97.1, pulse 64, respiratory rate 19, blood pressure 100/54 and pulse ox 98%. HEENT: Head normocephalic, atraumatic. Eyes: Extraocular muscles are intact. Pupils are equal, round and reactive to light and accommodation. Ears: No lesions. Nose appeared normal. Throat: No exudate or erythema. NECK: Supple. No JVD, no carotid bruit. No lymphadenopathy or thyromegaly. LUNGS: Decreased breath sounds but clear to auscultation. Percussion note normal. Chest symmetrical. HEART: S1, S2, no S3. No murmurs. No cyanosis or clubbing. No ascites. Pulses: Dorsalis pedis and posterior tibial pulses +1 to +2 both sides. ABDOMEN: Soft. Nontender. Bowel sounds active. No CVA tenderness. No mass felt. EXTREMITIES: No edema. Full range of motion of all extremities, equal. NEUROLOGIC: No focal deficit. Cranial nerves II through XII are grossly intact. No headache, no double vision or headache. SKIN: Not dry. Intact. Turgor - normal. LYMPHATIC: No palpable lymph nodes/no lymphedema. MUSCULOSKELETAL: Normal joints with no swelling. Muscle tone is normal. LABS: Hgb 10.3, hct 30, WBC 8,500 normal differential. ASSESSMENT: 1. Congestive heart failure, resolved 2. Respiratory failure, resolved 3. Coronary bypass surgery 4. Recent history of OR with stent 5. Chronic lung disease 6. Hypertension 7. Dyslipidemia PLAN: 1. Continue same treatment 2. Continue Lasix 3. Continue unloading agents 4. CHF education carried out 5. DASH diet discussed with the patient. 6. Advised to take her medication on regular basis CONDITION: Stable. TIME SPENT: More than 30 minutes. Plan and coordination of the patient's care discussed in the presence of nurse. CHARMAINE
--- NOTE | 2016-10-10 11:04 | PN ---
DATE OF SERVICE: 10/08/16 SUBJECTIVE: The patient is a 86 year old white female hospitalized with acute respiratory failure, acute pulmonary edema and severe hypoxemia. The patient's condition has steadily improved and she is feeling a lot better. Her pO2 is 55 with oxygen SAT at 89% on room air with remarkably improvement in her appetite. She is walking around and feeling a lot better. She says that she has not felt like this for last several months. REVIEW OF SYSTEMS: CONSTITUTIONAL: No night sweats. No fatigue, malaise, lethargy. No fever or chills. HEENT: Eyes: No visual changes. No eye pain. No eye discharge. ENT: No runny nose. No epistaxis. No sinus pain. No sore throat. No odynophagia. No congestion. RESPIRATORY: No cough, no congestion. No hemoptysis. CARDIOVASCULAR: No angina symptoms. No CHF symptoms. No atypical chest pain for CAD. No palpitations. No shortness of breath. GASTROINTESTINAL: No abdominal pain. No nausea or vomiting. No diarrhea or constipation. No hematemesis. No hematochezia. GENITOURINARY: No urgency. No frequency. No dysuria. No hematuria. No obstructive symptoms. No discharge. No pain. No significant abnormal bleeding. MUSCULOSKELETAL: No musculoskeletal pain; no joint swelling. NEUROLOGICAL: No headache. No neck pain. No syncope. No seizures. No dizziness. PSYCHIATRIC: Not anxious. No depression. No suicidal thoughts. No homicidal thoughts. SKIN: No rash. No lesions. No wounds. ENDOCRINE: No unexplained weight loss. No weight gain. HEMATOLOGIC/LYMPHATIC: No anemia. No purpura. No petechiae. No prolonged or excessive bleeding. No palpable lymph nodes. PHYSICAL EXAMINATION: GENERAL: The patient is oriented to time, place and person. VITAL SIGNS: Temperature 97.4, pulse 68, respiratory rate 18, blood pressure 108/63 and pulse ox 97% with 2 liters. HEENT: Head normocephalic, atraumatic. Eyes: Extraocular muscles are intact. Pupils are equal, round and reactive to light and accommodation. Ears: No lesions. Nose appeared normal. Throat: No exudate or erythema. NECK: Supple. No JVP, no carotid bruit. No lymphadenopathy or thyromegaly. LUNGS: Decreased breath sounds and clear to auscultation. Percussion note normal. Chest symmetrical. HEART: S1, S2, no S3. No murmurs. No cyanosis or clubbing. No ascites. Pulses: Dorsalis pedis and posterior tibial pulses +1 to +2 both sides. ABDOMEN: Soft. Nontender. Bowel sounds active. No CVA tenderness. No mass felt. EXTREMITIES: No edema. Full range of motion of all extremities, equal. NEUROLOGIC: No focal deficit. Cranial nerves II through XII are grossly intact. No headache, no double vision or headache. SKIN: Not dry. Intact. Turgor - normal. LYMPHATIC: No palpable lymph nodes/no lymphedema. MUSCULOSKELETAL: Normal joints with no swelling. Muscle tone is normal. LABS: hgb 10.1, hct 30, WBC 8.500 normal differential, creatinine 1.4, BUN 19, potassium 3.9, BNP 1417 yesterday which is a lot better then before. ASSESSMENT: 1. Acute pulmonary edema, resolved 2. Congestive heart failure, resolved 3. Acute respiratory failure, resolved 4. The patient is going to be on home oxygen with Chronic Lung Disease CONDITION: Stable PLAN: 1. The patient is explained about congestive heart failure and advised to take her medication on regular basis. 2. Echo report discussed with her and ejection fraction 35-40% discussed with the patient. 3. Advised to join Cardiac Rehab, Risks and rewards of rehab discussed. TIME SPENT: More than 30 minutes. Plan and coordination of the patient's care discussed in the presence of nurse. CHARMAINE
--- NOTE | 2016-10-12 11:43 | DS ---
DATE OF SERVICE: 10/09/16 FINAL DIAGNOSIS: 1. Acute respiratory failure 2. Acute pulmonary edema 3. Congestive heart failure 4. Anemia 5. [place] 08/08/16 with stent application 6. Pneumonia 08/2016 (health care acquired) 7. [place], 2007 and 2008 8. CABG, 2007 9. Hypertension 10.Dyslipidemia 11.COPD 12.Chronic kidney disease 13.Renal cyst, complex left 14.Hypothyroid LAST VITALS Temperature 97.5, pulse 60, respiratory rate 19, blood pressure 92/48 and pulse ox 96%. DISCHARGE INSTRUCTIONS: Discharge home to [facility]. Continue use of home oxygen at 2 liters per cannula. Patient is DNR per her request. An appointment is scheduled with Dr. Pereira on October 16 at 2pm. Keep scheduled appointment with Dr. lAmanza and Dr. Mack office on October 30. MEDICATIONS AT DISCHARGE: Aspirin EC 81mg PO daily Plavix 75mg PO daily Lasix 20mg PO QDAC Zestril 10mg PO daily Toprol XL 100mg PO daily Micro-K Cap 10meq PO daily Crestor 20mg Po bedtime ALLERGIES: Ezetimibe Guaifenesin Niacin NEW PRESCRIPTIONS: K-Tab 10meq daily Lisinopril 5mg daily DIET INSTRUCTIONS: Regular as tolerated ACTIVITY: Gradually resume as tolerated SMOKING: N/A DISEASE SPECIFIC EDUCATION: Medications CHF Appointments HOSPITAL COURSE: The patient is a 86 year old white female hospitalized with congestive heart failure with acute pulmonary edema and acute respiratory failure because pulmonary edema. The patient was treated with IV Lasix also given was steroid for couple of days because of pulmonary congestion. The patient was continued on the rest of medication. Atrial blood gasses were monitored with oximetry. The patient's cardiac rhythm was stable. Her cardiac markers were negative for any acute marker event. The patient had recently undergone cardiac catheterization and stent placement after ST elevation [place]. The patient had stopped taking Lasix likely with the fear of going to the bathroom quite often. The patient's leg edema subsided, congestive heart failure subsided. At the time of discharge the patient didn't have any symptoms of CHF or coronary insufficiency. Condition at the time of discharge stable. The patient's hgb was 9.5 with hct of 28.9. The patient is strongly advised to followup with [facility] / Dr. Mack, her appointment is on 10/30/16. The patient also has an appointment with Dr. Almanza on 10/17/16. On discharge the patient's creatinine was 1.5, BUN 30, potassium 4.2. The patient also ran systolic blood pressure of 80-100. The Zestril dose was decreased to 5mg and the patient was continued on Metoprolol. CONDITION: Stable. TIME SPENT: More than 60 minutes. MTDD
--- NOTE | 2016-10-12 11:45 | PN ---
10/05/16: Level 5 10/06/16: Intermediate 10/07/16: Intermediate 10/08/16: Intermediate 10/09/16: D as in discharge MTDD
== END 2016-10-09 13:40 | disposition home or self-care (01) | DRG 189 ==
LOC: ED 14:34 → SCU 16:56
PROVIDERS: ADMIT Internal Medicine; ATTEND Internal Medicine
DX: J96.01 Acute respiratory failure with hypoxia (principal); J81.0 Acute pulmonary edema; J98.11 Atelectasis; I50.9 Heart failure, unspecified; I51.7 Cardiomegaly; R60.0 Localized edema; E11.9 Type 2 diabetes mellitus without complications; I10 Essential (primary) hypertension; I48.0 Paroxysmal atrial fibrillation; I25.2 Old myocardial infarction; D64.9 Anemia, unspecified; J44.9 Chronic obstructive pulmonary disease, unspecified; N18.9 Chronic kidney disease, unspecified; N28.1 Cyst of kidney, acquired; E03.9 Hypothyroidism, unspecified; Z95.1 Presence of aortocoronary bypass graft; Z99.81 Dependence on supplemental oxygen; Z79.02 Long term (current) use of antithrombotics/antiplatelets; Z79.899 Other long term (current) drug therapy
CPT/HCPCS: 36415; 80053; 82550; 82803; 83880; 84484; 85025; 85379; 93005; 93010; 94640; 96374; 99284; 99285

== ENCOUNTER 2017-08-14 09:40 | Outpatient (CLI) ==
--- NOTE | 2017-08-14 10:41 | CT ---
Exam: CT of the abdomen and pelvis without contrast History: Right flank pain Technique: [address] of the abdomen and pelvis without intravascular contrast FINDINGS: The lung bases are clear. No significant liver abnormality. The adrenals, pancreas and spl een are unremarkable. The stomach and hiatus are unremarkable.Cholelithiasis without abnormal gallbla dder distension or pericholecystic inflammation. Left kidney 1.8 cm cyst. Subtle 0.8 cm exophytic n odule of the lower right kidney stable from 11/26/2015 and shown to represent a cyst on ultrasound . There is a exophytic hyperdense cyst of the upper right kidney. The kidneys and collecting system are unremarkable otherwise. Atherosclerotic calcification of the aorta without aneurysm. The appendix is normal. Pelvic genitourinary structures appear normal. Pelvic bowel loops are unremarkable. No inflammatory c hange in the pelvic fat. No acute abnormality of the abdominal or pelvic skeleton. Impression: 1. No inflammatory process, bowel or urinary obstruction is seen. 2. Hyperdense cysts of the upper and lower pole of the right kidney stable from 11/26/2015. 3. No urolithiasis is seen. 4. Cholelithiasis without CT evidence of cholecystitis.
== END 2017-08-14 09:41 | disposition home or self-care (01) ==
LOC: RAD 09:40
PROVIDERS: ATTEND Internal Medicine
DX: R10.9 Unspecified abdominal pain (principal)